=== PATIENT | female | born 1990 | race Caucasian/White ===

== ENCOUNTER 2016-11-11 12:25 | Emergency (ER) | payer OTHER ==
[~2016-11-11] VITALS: Ht 154.9 cm; Wt 86.2 kg
[~2016-11-11 12:25] MED LIST: DILANTIN100 MG PO; KEPPRA XR750 MG PO; KEPPRA500 MG PO; KEPPRA750 MG PO; LAMICTAL25 MG PO; TRILEPTAL600 MG PO
[2016-11-11 13:04] VITALS: BP 143/69
--- NOTE | 2016-11-11 15:07 | NUR ---
Patient to bed 07.
--- NOTE | 2016-11-11 15:39 | NUR ---
PT PRESENTS TO ER W/C/O VAGINAL BLEEDING DURING X1 WEEK; DENIES N/V/D; SKIN IS PINK/WARM/DRY; AAOX4 WITH EVEN AND STEADY GAIT; LUNGS CLEAR BL; HR EVEN AND REGULAR; PT DENIES ANY FEVER, CP, SOB, OR COUGH AT THIS TIME; PATIENT STATES PAIN OF 0/10 AT THIS TIME; VSS; PATIENT POSITIONED FOR COMFORT; HOB ELEVATED; BEDRAILS UP X2; BED DOWN. ER MD MADE AWARE OF PT STATUS.
[2016-11-11 16:33] VITALS: BP 138/72
--- NOTE | 2016-11-11 16:33 | NUR ---
Patient discharged with v/s stable. Written and verbal after care instructions given and explained. Patient verbalized understanding. Ambulatory with by parent. All questions addressed prior to discharge. Advised to follow up with PMD.
[2016-11-21] MEDS ORDERED: KETOROLAC PO (12:55)
[2016-11-21] MEDS ORDERED: FIORICET PO (12:55)
== END 2016-11-11 16:33 | disposition home or self-care (01) ==
LOC: MED 12:25
DX: O03.9 Complete or unspecified spontaneous abortion without complication (principal)
CPT/HCPCS: 36415; 76801; 76817; 81001; 81025; 84702; 85025; 86900; 86901; 99285; Q0092

== ENCOUNTER 2016-11-13 14:50 | Inpatient (IN) | payer OTHER ==
[~2016-11-13] VITALS: Ht 154.9 cm; Wt 104.3 kg
[~2016-11-13 14:50] MED LIST changes: -DILANTIN100 MG PO; -KEPPRA XR750 MG PO; -KEPPRA500 MG PO; -KEPPRA750 MG PO; -LAMICTAL25 MG PO; +LEVE750T3 PO; +OXCA600T2 PO; +PHEN100C3 PO; -TRILEPTAL600 MG PO
[2016-11-13 14:53] VITALS: BP 159/70
--- NOTE | 2016-11-13 16:05 | NUR ---
Patient taken to bed 06 via wheelchair per tech.
--- NOTE | 2016-11-13 16:10 | NUR ---
26F BIB FAMILY C/O ANTERIOR MIGRAINE HEADACHE, RADIATES TO POSTERIOR HEAD, / X TODAY; PT DENIES TRAUMA OR INJURY TO SITE AT THIS TIME; PT STATES HAD BRAIN SURGERY IN 2014 D/T EPILSEPY; SMALL HEALED SCAR NOTED TO LEFT HEAD; PT STATES HAS NOT HAD SEIZURES SINCE BRAIN SURGERY; PT A&OX4, PERRLA, DENIES VISION CHANGES OR VISION LOSS AT THIS TIME; STATES HAS HX OF MIGRAINES; PT C/O VOMITING, BUT DENIES DIARRHEA AT THIS TIME; ABDOMEN SOFT, NON-TENDER, ACTIVE BOWEL SOUNDS X 4 QUADRANTS; BL LUNG SOUNDS CLEAR, RR EVEN/UNLABORED, SKIN IS WARM/DRY/INTACT AT THIS TIME; PT PLACED ON MONITOR, RESTING IN BED W/ HOB ELEVATED AND IN LOWEST POSITION; POSITIONED FOR COMFORT; ER MD MADE AWARE OF STATUS. WILL CONTINUE TO MONITOR.
--- NOTE | 2016-11-13 16:12 | NUR ---
URINE CUP PROVIDED TO PT; BED MCQUEEN AND WATER PROVIDED TO PT PER REQUEST; NO URINE SAMPLE AT THIS TIME; ER MD DR ROACH NOTIFIED; WILL CONTINUE TO MONITOR.
--- NOTE | 2016-11-13 16:14 | NUR ---
WARM BLANKETS PROVIDED TO PT FOR COMFORT.
--- NOTE | 2016-11-13 16:42 | NUR ---
Dr. Camejo evaluating patient at bedside.
[2016-11-13] MEDS ORDERED: NACL 0.9% 1,000 ML IV ONE ×3 (16:46→21:25)
[2016-11-13] MEDS ORDERED: METOCLOPRAMIDE 10 MG/2 ML INJ VIAL IVP ONE (16:50)
[2016-11-13] MEDS ORDERED: diphenhydrAMINE 50 MG/ML VIAL IVP ONE (16:50)
--- NOTE | 2016-11-13 17:15 | NUR ---
PT APPEARS TO BE RESTING COMFORTABLY IN BED; VSS; RR EVEN/UNLABORED; NO ACUTE DISTRESS NOTED AT THIS TIME; WILL CONTINUE TO MONITOR.
--- NOTE | 2016-11-13 17:15 | NUR ---
PT RESTING COMFORTABLY IN BED; VSS; RR EVEN/UNLABORED; NO ACUTE DISTRESS NOTED AT THIS TIME; WILL CONTINUE TO MONITOR.
--- NOTE | 2016-11-13 17:30 | NUR ---
PT STATES PAIN 10/10 AFTER ADMINISTRATION OF PAIN MEDICATION PER ER MD DR. ROACH ORDER; ER MD DR. ROACH NOTIFIED; WILL CONTINUE TO MONITOR.
--- NOTE | 2016-11-13 17:42 | NUR ---
ER MD DR. ROACH RE-EVALUATING PT AT BEDSIDE.
[2016-11-13] MEDS ORDERED: MORPHINE SULFATE 4 MG/ML SYR IVP ONE ×2 (17:45→18:15)
--- NOTE | 2016-11-13 18:37 | NUR ---
PT STATES PAIN 10/10 AFTER ADMINISTRATION OF PAIN MEDICATION PER ER MD DR. ROACH ORDER; ER MD DR. ROACH NOTIFIED. WILL CONTINUE TO MONITOR.
--- NOTE | 2016-11-13 18:39 | NUR ---
ER MD DR. ROACH RE-EVALUATING PT AT BEDSIDE.
[2016-11-13 19:00] LABS: HEMATOCRIT 41.9 % (36-48); HEMOGLOBIN 13.7 g/dL (12.0-16.0); MEAN CORPUSCULAR HEMOGLOBIN 26 pg (27-31); MEAN CORPUSCULAR HGB CONC 33 g/dL (33-37); MEAN CORPUSCULAR VOLUME 79 fL (80-94); PLATELET COUNT (AUTO) 364 K/uL (140-450); RED BLOOD CELL COUNT(AUTO) 5.31 MIL/uL (4.20-5.40); RED CELL DISTRIBUTION WIDTH 12.4 % (11.6-13.7)
--- NOTE | 2016-11-13 19:00 | NUR ---
PT TEMP 101.4 AT THIS TIME; COOLING MEASURES INITIATED; ER MD DR. ROACH NOTIFIED; WILL CONTINUE TO MONITOR.
--- NOTE | 2016-11-13 19:08 | NUR ---
Pt report given to NITA BENJAMIN. Transfer of care at this time.
[2016-11-13 19:10] LABS: ANION GAP 12.8 (8-16); CALCIUM 8.6 mg/dL (8.5-10.1); CREATININE 0.7 mg/dL (0.6-1.3); POTASSIUM 3.8 mmol/L (3.5-5.1)
--- NOTE | 2016-11-13 19:10 | NUR ---
PT IN BED C/O PAIN, TACHY ER MD EVALUATING PT AT BEDSIDE. PLAN OF CARE EXPLAINED TO MOTHER.
--- NOTE | 2016-11-13 19:10 | NUR ---
DR. BOWERS EVALUATING PT AT BEDSIDE.
[2016-11-13 19:16] LABS: ALBUMIN 3.5 g/dL (3.4-5.0); TOTAL BILIRUBIN 0.3 mg/dL (0.0-1.0); TOTAL PROTEIN, SERUM 8.2 g/dL (6.4-8.2)
[2016-11-13 19:17] LABS: BAND % (MANUAL) 3 % (0-8); EOSINOPHILS % (MANUAL) 1 % (0-4); LYMPHOCYTES % (MANUAL) 14 % (20-46); METAMYELOCYTES % 2 % (0-0); MONOCYTES % (MANUAL) 2 % (5-12); MYELOCYTES % 2 % (0-0); NEUTROPHILS % (MANUAL) 76 (43-65); PLATELET ESTIMATE ADEQUATE
--- NOTE | 2016-11-13 19:18 | NUR ---
PT TAKEN TO CT VIA GURSTACEY ACCOMPANIED BY TUFTING MACHINE FIXER.
--- NOTE | 2016-11-13 19:34 | NUR ---
PT RETURN FROM RADIOLOGY
--- NOTE | 2016-11-13 19:42 | NUR ---
UNABLE TO GIVE TYLENOL PO FOR FEVER D/T ALOC. ER NOTIFIED.
[2016-11-13] MEDS ORDERED: ACETAMINOPHEN EXTRA STRENGTH 500 MG TAB ONE (19:46)
--- NOTE | 2016-11-13 19:48 | NUR ---
ATIVAN 2 MG ADMINISTERED IV FOR SEIZURE ACTIVITY, PER ER MD VERBAL ORDER. PT HAD A SEIZURE FOR 45 SEC. ER MD, PRIMARY RN, CHARGE NURSE, EMT AND MOTHER AT BED SIDE. HR 155, BP 115/80, R 35, SPO2 94 DURING SEIZURE ACTIVITY. AFTER SEIZURE ACTIVITY HR 126, R 24, BP 117/84, SPO2 97.
--- NOTE | 2016-11-13 19:50 | NUR ---
MOTHER SIGNED CONSENT FORMS FOR LUMBAR PUNCTURE. RISK AND BENEFITS EXPLAINED BY DR BOWERS AND ME TO MOTHER AT BEDSIDE.
[2016-11-13] MEDS ORDERED: VANCOMYCIN PER PHARMACY MC STA (19:56)
[2016-11-13] MEDS ORDERED: LORazepam 2 MG/ML VIAL ONE (19:57)
[2016-11-13 19:58] LABS: APPEARANCE,URINE CLEAR (CLEAR); BILIRUBIN,URINE NEGATIVE (NEGATIVE); BLOOD, URINE NEGATIVE (NEGATIVE); COLOR,URINE YELLOW (YELLOW); LEUKOCYTE ESTERASE ,URINE NEGATIVE (NEGATIVE); NITRITE, URINE NEGATIVE (NEGATIVE); PROTEIN,URINE NEGATIVE (NEGATIVE); UGLUCOSE NEGATIVE (NEGATIVE); UROBILINOGEN,URINE 0.2 EU/dL (0.2 - 1)
[2016-11-13 20:00] LABS: RBC,URINE 0-3 /HPF (0-5); WBC,URINE 0-3 /HPF (0-5)
[2016-11-13] MEDS ORDERED: DEXAMETHASONE 10 MG/ML VIAL IVP ONE (20:00)
[2016-11-13] MEDS ORDERED: [UNRECOGNIZED DRUG - OTHER] IV ONE (20:00)
[2016-11-13] MEDS ORDERED: cefTRIAXone 2,000 MG in DEXTROSE 5% 100 ML IV ONE (20:00)
[2016-11-13] MEDS ORDERED: VANCOMYCIN IV ONE (20:00)
[2016-11-13 20:01] LABS: BACTERIA,URINE FEW /HPF (None Seen)
[2016-11-13 20:08] LABS: PROTHROMBIN TIME 9.7 secs (10.8-13.4)
[2016-11-13 20:18] LABS: LACTIC ACID 2.4 mmol/L (0.4-2.0)
[2016-11-13] MEDS ORDERED: cefTRIAXone 2,000 MG VIAL ONE (20:18)
[2016-11-13] MEDS ORDERED: ACYCLOVIR 700 MG in NACL 0.9% 100 ML IV ONE (21:25)
[2016-11-13] MEDS ORDERED: ACYCLOVIR 500 MG VIAL IV ONE (21:36)
[2016-11-13] MEDS ORDERED: ACETAMINOPHEN 650 MG SUPP RC ONE (21:40)
[2016-11-13] MEDS ORDERED: ACETAMINOPHEN 325 MG TAB PO PRN (21:55)
[2016-11-13] MEDS ORDERED: LORazepam 2 MG/ML VIAL IVP PRN (22:05)
[2016-11-13] MEDS ORDERED: LORazepam 1 MG TAB PO PRN (22:05)
[2016-11-13] MEDS ORDERED: VANCOMYCIN 1,000 MG VIAL ONE (22:09)
--- NOTE | 2016-11-13 22:21 | NUR ---
Patient will be admitted to care of DR MOTTA. Admited to ICU. Will go to roOM ICU 8. Belongings list completed. Report to POLA.
[2016-11-13 22:43] LABS: AMPHETAMINE, URINE NEG. ng/ml (NEG <=1000); BARBITURATE, URINE NEG. ng/ml (NEG <=200); BENZODIAZEPINE, URINE NEG. ng/mL (NEG <=200); CANNABINOID, URINE NEG. ng/mL (NEG <=50); COCAINE, URINE NEG. ng/mL (NEG <=300); OPIATE, URINE NEG. ng/mL (NEG <=2000); PHENCYCLIDINE SCREEN,URINE NEG. ng/mL (NEG <=25)
--- NOTE | 2016-11-13 22:45 | NUR ---
PT ARRIVED ON UNIT FROM ER VIA GURNEY, PT PLACED ON MONITOR. PT IS CURRENTLY LETHARGIC, DROWSY BUT RESPONDS TO LIGHT PAIN STIMULI. PT IS ON O2 3LPM VIA N/C WITH NO S/S OF ACUTE RESP DISTRESS NOTED AT THIS TIME. [employer] SENIOR OFFICER SHOWS SR-ST AT THIS TIME. PT HAS LEFT HAND #22 RUNNING ACYCLOVIR AT 100ML/HR IV SITE IS DRY PATENT AND INTACT. PT ALSO HAS LEFT AC #20 RUNNING VANCO AT 135ML/HR, IV SITE DISLODGED UPON TRANSFER TO BED. IV MED PAUSED. IV REMOVED. NO S/S OF INFILTRATION. PT ABDOMEN IS SOFT WITH ACTIVE BOWEL SOUNDS UPON AUSCULTATION. PT HAS MCKENNA CATHETER IN PLACE DRAINING CLEAR YELLOW URINE. SKIN INTACT. BED IN LOW POSITION, HOB UP. WILL CONTINUE TO CLOSELY MONITOR.
[2016-11-13 22:47] LABS: CHOL/HDL RATIO 3.5 (1-4.5)
--- NOTE | 2016-11-13 22:50 | NUR ---
DR TALBOT ON UNIT TO EVALUATE PATIENT. PT ABLE TO RESPOND AT TIMES WITH CLEAR WORDS. PT STILL LETHARGIC. WILL CONTINUE TO CLOSELY MONITOR.
[2016-11-13 22:56] VITALS: BP 151/51
[2016-11-13 22:58] LABS: FREE T4 (FREE THYROXINE) 1.01 ng/dL (0.76-1.46); THYROID STIMULATING HORMONE 1.73 uIU/mL (0.34-3.76)
--- NOTE | 2016-11-13 23:00 | NUR ---
DR TALBOT IS SPEAKING WITH FAMILY AT BEDSIDE. WILL FOLLOW UP WITH ANY NEW ORDERS.
--- NOTE | 2016-11-13 23:25 | NUR ---
ABG DONE WITH NO INCIDENT ON 3 L NC. RESULTS GIVEN TO DR TALBOT. PT IS LETHARGIC. DR TALBOT IN TO SEE PT. EKG DONE AND RESULTS GIVEN TO RN AND DR TALBOT. WILL CONTINUE TO MONITOR.
[2016-11-13] MEDS: NACL 0.9% 1,000 ML IV SCH (23:40)
[2016-11-13 23:41] LABS: BLOOD GAS PCO2 27.4 mmHg (20-50); BLOOD GAS PH 7.398 (7.35-7.45); BLOOD GAS PO2 137.3 mmHg
[2016-11-13 23:42] LABS: BLOOD GAS BASE EXCESS -6.6 mmol/L (-2.0-2.0); BLOOD GAS HCO3 16.5 mmol/L
--- NOTE | 2016-11-13 23:50 | NUR ---
FAMILY AT BEDSIDE. NO SOB NOTED AT THIS TIME. WILL CONTINUE TO CLOSELY MONITOR.
[2016-11-14] VITALS (10 sets, daily range): BP systolic 109–145; BP diastolic 53–69
[2016-11-14 00:04] LABS: LACTIC ACID 5.2 mmol/L (0.4-2.0)
--- NOTE | 2016-11-14 00:17 | NUR ---
PT BECOMING MORE ALERT. PT STATED SHE IS HAVING PAIN OF 10/10 WILL MEDICATE ORDERED PRN.
[2016-11-14] MEDS: MORPHINE SULFATE 2 MG/ML SYR IVP PRN ×2 (00:21→05:51)
--- NOTE | 2016-11-14 01:26 | NUR ---
CRITICAL LAB RESULT REPORTED TO DR. MOTTA AFTER HE RETURNED MY PAGE FOR THE 3RD TIME.
--- NOTE | 2016-11-14 02:02 | NUR ---
PT RESTING IN BED. NO SOB NOTED AT THIS TIME. WILL CONTINUE TO MONITOR.
--- NOTE | 2016-11-14 02:37 | NUR ---
DECREASED FIO2 TO 2 L NC 28% SPO2 IS STILL 100%. RN POLA AWARE. WILL CONTINUE TO MONITOR.
--- NOTE | 2016-11-14 04:40 | NUR ---
MORNING CARE RENDERED. PT ABLE TO TURN SELF NO SOB NOTED. WILL CONTINUE TO CLOSELY MONITOR.
[2016-11-14] MEDS: NACL 0.9% 1,000 ML IV SCH ×3 (04:46→17:35)
--- NOTE | 2016-11-14 05:17 | NUR ---
DECREASED FIO2 TO 1 L NC 24% SPO2 IS STILL 100%. RN RAYNE AWARE. WILL CONTINUE TO MONITOR
--- NOTE | 2016-11-14 05:50 | NUR ---
PT AWAKE, PT ABLE TO OPEN EYES WHEN ASKED TO. PT STATES SHE IS HAVING BACK PAIN OF 8/10. WILL MEDICATE ORDERED PRN
--- NOTE | 2016-11-14 06:27 | NUR ---
PT SLEEPING AT THIS TIME. FLACC 0. NO S/S OF DISCOMFORT OR ACUTE RESP DISTRESS NOTED AT THIS TIME. PARENTS AT BEDSIDE. WILL CONTINUE TO MONITOR.
[2016-11-14] MEDS ORDERED: LORazepam 2 MG/ML VIAL IVP STA (06:47)
[2016-11-14] MEDS ORDERED: VANCOMYCIN PER PHARMACY MC PRN (07:05)
[2016-11-14] MEDS: ONDANSETRON 4 MG/2 ML VIAL IVP PRN (07:07)
--- NOTE | 2016-11-14 07:15 | NUR ---
ENDORSED PLAN OF CARE TO DAY NURSES NITA DEVI RN UGOCHI RN FOR TRANSFER OF CARE. PT STABLE AT THIS TIME.
--- NOTE | 2016-11-14 07:20 | NUR ---
PT IS ALERT AND ORIENTED X 3. LETHARGIC. C/O NAUSEA. NOTED TO PT THAT ZOFRAN WAS JUST ADMINISTERED AND WILL TAKE AWHILE TO WORK. PT STATED UNDERSTANDING. DECLINE BREAKFAST. DECLINE TURN D/T NAUSEA. WILL LET NURSING KNOW WHEN SHE FEELS READY TO EAT. TEMPERATURE WAS 100 F. WILL F/U WITH MD FOR APPROPRIATE FORM OF MEDICATION PT HAS NAUSEA. PT IS CURRENTLY ON ROOM AIR SATURATING WELL. ST ON MONITOR. L AC 22 GAUGE INTACT AND FLUSHING. L HAND 22 GAUGE INTACT AND PATENT. FLUSHING WELL. SKIN INTACT. MCKENNA CATHETER IN PLACE. DRAINING CLEAR YELLOW URINE. WILL CONTINUE TO MONITOR.
--- NOTE | 2016-11-14 07:49 | NUR ---
ORDERS CLARIFIED WITH PHARMACY REGARDING ABX DOSE.
--- NOTE | 2016-11-14 08:15 | NUR ---
NOTIFIED PT HAS HEADACHE AT 03/24. PER THEY WILL COME TO CHECK PT.
--- NOTE | 2016-11-14 08:15 | NUR ---
DR. MOTTA AT BEDSIDE. WILL F/U WITH NEW ORDERS.
[2016-11-14] MEDS ORDERED: ACETAMINOPHEN 650 MG SUPP RC PRN (08:20)
--- NOTE | 2016-11-14 08:30 | NUR ---
IN TO SEE PT, ASKED PT'S MOTHER REGARDING PT'S MEDICAL HISTORY.
[2016-11-14] MEDS: HYDROmorphone 1 MG/ML AMP IVP PRN ×2 (08:41→16:07)
[2016-11-14 09:12] LABS: HEMATOCRIT 36.4 % (36-48); HEMOGLOBIN 12.4 g/dL (12.0-16.0); MEAN CORPUSCULAR HEMOGLOBIN 27 pg (27-31); MEAN CORPUSCULAR HGB CONC 34 g/dL (33-37); MEAN CORPUSCULAR VOLUME 78 fL (80-94); PLATELET COUNT (AUTO) 290 K/uL (140-450); RED BLOOD CELL COUNT(AUTO) 4.66 MIL/uL (4.20-5.40); RED CELL DISTRIBUTION WIDTH 11.9 % (11.6-13.7)
[2016-11-14 09:22] LABS: POTASSIUM 3.5 mmol/L (3.5-5.1)
--- NOTE | 2016-11-14 09:25 | NUR ---
PT HAS 0900 MEDICATION. PT STATED SHE IS ABLE TO SWALLOW IT. A/O X 3 LETHARGIC. WILL MONITOR MEDICATION ADMINISTRATION CLOSELY.
[2016-11-14 09:26] LABS: WHITE BLOOD COUNT (AUTO) 32.9 K/uL (4.8-10.8)
--- NOTE | 2016-11-14 09:26 | NUR ---
CRITICAL WBC RESULTS RECEIVED FROM DEONTE IN LAB. NOTIFIED AT 0932. NO NEW ORDERS RECEIVED. WILL CONTINUE TO MONITOR.
[2016-11-14 09:27] LABS: BAND % (MANUAL) 6 % (0-8); LYMPHOCYTES % (MANUAL) 5 % (20-46); MONOCYTES % (MANUAL) 5 % (5-12); NEUTROPHILS % (MANUAL) 84 (43-65)
--- NOTE | 2016-11-14 09:29 | NUR ---
FAXED INITIAL REVIEW TO [facility] [phone] PHONE [facility] [phone]
[2016-11-14] MEDS: OXcarbazepine 150 MG TAB PO SCH ×2 (09:30→20:51)
[2016-11-14] MEDS: levETIRAcetam 500 MG TAB PO SCH ×2 (09:30→20:51)
[2016-11-14] MEDS: LACTOBACILLUS RHAMNOSUS GG 1 EACH CAP PO SCH (09:30)
[2016-11-14 09:38] LABS: CALCIUM 7.8 mg/dL (8.5-10.1); CARBON DIOXIDE 23.5 mmol/L (21-32); CREATININE 0.7 mg/dL (0.6-1.3)
--- NOTE | 2016-11-14 10:10 | NUR ---
PATIENT HAS BEEN SCREENED AND CATEGORIZED HIGH NUTRITION RISK. PATIENT WILL BE SEEN WITHIN 1-2 DAYS OF ADMISSION. 11/14/16-11/15/[address]
[2016-11-14 10:18] LABS: BLOOD GAS PH 7.434 (7.35-7.45); BLOOD GAS PO2 72.3 mmHg
[2016-11-14 10:19] LABS: BLOOD GAS BASE EXCESS -1.4 mmol/L (-2.0-2.0); BLOOD GAS HCO3 22.3 mmol/L; BLOOD GAS O2 SAT% 94.4 % (92.0-98.5)
--- NOTE | 2016-11-14 10:37 | NUR ---
US TECH AT BEDSIDE
--- NOTE | 2016-11-14 10:49 | NUR ---
DR. DAVENPORT AT BEDSIDE TO SEE PT. WILL F/U WITH NEW ORDERS.
[2016-11-14] MEDS: VANCOMYCIN 1,250 MG in DEXTROSE 5% 250 ML IV SCH ×2 (11:16→22:51)
[2016-11-14] MEDS: HYDROcodone/APAP 5/325 MG 1 TAB TAB PO PRN (11:52)
--- NOTE | 2016-11-14 11:52 | NUR ---
PATIENT COMPLAINS OF HEADACHE WITH A PAIN LEVEL OF 6/10. ASSESSED PATIENT BLOOD PRESSURE WITHIN NORMAL LIMITS, RESPIRATIONS ARE EASY AND REGULAR, O-SAT 99% ON ROOM AIR, SR ON MONITOR. NO SIGN OF ACUTE DISTRESS. PATIENT WAS GIVEN NORCO 5/325 PER PHYSICIAN ORDERS. WILL CONTINUE TO MONITOR THE PATIENT.
--- NOTE | 2016-11-14 12:06 | NUR ---
11/14/16 RD INITIAL ASSESSMENT COMPLETED PLEASE REFER TO NUTRITION ASSESSMENT UNDER CARE ACTIVITY FOR ESTIMATED NUTRITIONAL NEEDS. 1. WHEN MEDICALLY FEASIBLE, INITIATE PO DIET: TO START ON CLEAR LIQUID DIET, AND ADVANCE TOLERATED TO REGULAR DIET 2. RD TO FOLLOW-UP 2-3 DAYS; HIGH RISK SHYLA ARTIS RD
--- NOTE | 2016-11-14 12:49 | NUR ---
PT IS RESTING IN BED. AWAKEN TO GENTLE SHAKING. ABLE TO ANSWER ALL QUESTIONS. NO S/SX OF ACUTE DISTRESS NOTED. PT LEFT FOR RADIOLOGY WITH TWO NURSE AND SEARCH ADVERTISING STRATEGIST.
[2016-11-14] MEDS ORDERED: metroNIDAZOLE 500 MG/NS PREMIX 100 ML IV SCH (13:00)
[2016-11-14] MEDS ORDERED: ACYCLOVIR 500 MG in NACL 0.9% 100 ML IV SCH (13:00)
--- NOTE | 2016-11-14 13:24 | NUR ---
DR. TALBOT AT UNIT TO SEE PT. WILL F/U WITH ANY NEW ORDERS.
--- NOTE | 2016-11-14 13:42 | NUR ---
PT BACK TO ICU, PT AWAKE, ALERT, AND ORIENTED. NO S/S OF RESPIRATORY DISTRESS NOTED. ATTACHED PT ON BEDSIDE MONITOR. BP 123/67, HR 103, SPO2 95%, RR 19.
[2016-11-14] MEDS ORDERED: NACL 0.9% IV SCH (14:00)
[2016-11-14] MEDS ORDERED: PHENYTOIN IV SCH (14:00)
[2016-11-14 14:48] LABS: CSF APPEARANCE HAZY (CLEAR); CSF COLOR COLORLESS (COLORLESS)
--- NOTE | 2016-11-14 14:58 | NUR ---
I SPOKE WITH [facility]. IF HIGHER LEVEL OF CARE IS NEEDED, THEY ARE CONTRACTED WITH [facility], [place], [facility]. THE EDS TEAM IS OPERATOR [employer] 05/01, AND CALL THEM AT [phone].
[2016-11-14 15:05] LABS: CSF GLUCOSE 32 mg/dL (40-70); CSF PROTEIN 203.2 mg/dL (15-45)
[2016-11-14 16:26] LABS: CSF RED BLOOD CELL COUNT 72 /cumm (0-0); CSF WHITE BLOOD CELL COUNT 9000 /cumm (0-5)
[2016-11-14] MEDS: PHENYTOIN 100 MG CAPER PO SCH (17:16)
[2016-11-14] MEDS: KETOROLAC 15 MG/ML VIAL IVP PRN (17:16)
--- NOTE | 2016-11-14 17:30 | NUR ---
1722, RECEIVE LAB RESULT FROM COLE ABOUT SPINAL FLUID PRELIMINARY RESULTS. 1726 ATTEMPTED TO CALL MD. VOICE MAIL LEFT. 1728 ATTEMPTED TO CALL MD. VOICE MAIL LEFT. WILL F/U IN 15 MIN.
--- NOTE | 2016-11-14 17:41 | NUR ---
CALL DR. MOTTA PER PROTOCOL. NOTIFIED DR. MOTTA OF RESULTS. NO ORDERS UNTIL FURTHER NOTICE
--- NOTE | 2016-11-14 17:47 | NUR ---
PAGED DR. RANDHAWA PER MD ORDER. WILL AWAIT CALL BACK
[2016-11-14] MEDS: cefTRIAXone 2,000 MG in DEXTROSE 5% 100 ML IV SCH (18:06)
--- NOTE | 2016-11-14 19:00 | NUR ---
RECHECK TEMPERATURE. TEMP WAS 98.3. PT REPORTED RELIEF.
--- NOTE | 2016-11-14 19:15 | NUR ---
REPORT GIVEN TO NITA LÓPEZ. PT IS STABLE.
--- NOTE | 2016-11-14 19:15 | NUR ---
RECEIVED REPORT FROM FUNMI RN AT BEDSIDE, PT IS AAOX4, ABLE TO FOLLOW COMMANDS AND MAKE NEEDS KNOWN, VSS, C/O SEVERE HEADACHE 01/22, WILL MEDICATED AND EDUCATED. NO C/O SOB/DISTRESS, CLEAR LUNG SOUNDS, ON RA, DENIES CHEST PAIN, ST ON MONITOR WITH REGULAR HR, SOFT ABDOMEN WITH ACTIVE BOWEL SOUNDS, NPO EXCEPT MEDS AT THIS TIME, MCKENNA CATHETER IN PLACE WITH CLEAR YELLOW URINE, ABLE TO MOVE ALL EXTREMITIES, ON BEDREST. IV SITE TO RIGHT FOREARM 18GA, PATENT AND SL. IV SITE TO LEFT HAND 22GA, PATENT, RUNNING NS AT 150ML/HR. SKIN IS INTACT, WARM AND DRY TO TOUCH. SCD'S ON BLE FOR DVT PREVENTION. EXPLAINED POC TO PATIENT, PATIENT VERBALIZED UNDERSTANDING, SAFETY PRECAUTION AND SEIZURE PRECAUTION IN PLACE, CALL LIGHT WITHIN REACH, WILL CONTINUE TO MONITOR.
[2016-11-14] MEDS ORDERED: DEXTROSE 5% IV SCH (19:30)
[2016-11-14] MEDS ORDERED: AMPHOTERICIN B IV SCH (19:30)
--- NOTE | 2016-11-14 21:00 | NUR ---
SCHEDULED MEDICATION GIVEN, PT ABLE TO SWOLLEN MEDICATION AT THIS TIME.
--- NOTE | 2016-11-14 21:30 | NUR ---
PT HR 151, FEVER 101.2F, BP 112/50, RR 34, ALSO HAS SYMPTOMS OF CHILL AND SHAKING, DR. SYDNEE ORELLANA, NEW ORDER GIVEN WITH BENADRYL AND TYLENOL, WILL CARRY OUT. Addendum: 11/14/16 at 2137 by Ramy Ingram RN ALSO COMFIRMED WITH DR. RANDHAWA OF CONTINUE MEDICATION OF AMPHOTERICIN B.
[2016-11-14] MEDS ORDERED: diphenhydrAMINE 50 MG/ML VIAL IVP ONE (21:40)
[2016-11-14] MEDS ORDERED: ACETAMINOPHEN 325 MG TAB PO STA (21:45)
--- NOTE | 2016-11-14 21:45 | NUR ---
DR. RANDHAWA CAME TO SEE PATIENT, PT'S FAMILY AT BEDSIDE.
[2016-11-14] MEDS ORDERED: ACETAMINOPHEN 325 MG TAB ONE (21:47)
[2016-11-14] MEDS ORDERED: diphenhydrAMINE 50 MG/ML VIAL ONE (21:56)
--- NOTE | 2016-11-14 22:19 | NUR ---
DR. RANDHAWA WAS HERE TO SEE THE PATIENT, PHYSICIAN SPOKE WITH THE PARENTS, RN ARI CESPEDES/RN HERE TO INTERPRET, MD DISCUSSED WHAT WILL BE THE TREATMENT PLAN AT THIS TIME. DR. RANDHAWA ORDERED DROPLET PRECAUTION FOR NOW UNTIL FURTHER INFO, FUNGAL CULTURE, CRYPTOCOCCAL ANTIGEN AND YENY INK SMEAR ON CSF.
[2016-11-15] VITALS (12 sets, daily range): BP systolic 101–134; BP diastolic 49–81
--- NOTE | 2016-11-15 | NUR ---
PT'S TEMP WENT DOWN TO 99.6F, ASLEEP IN BED WITH COMFORT AT THIS TIME. VSS.
--- NOTE | 2016-11-15 02:00 | NUR ---
VSS. NO CHANGE OF CONDITION AT THIS TIME, PT IS ABLE TO SELF CHANGE POSITION IN BED.
--- NOTE | 2016-11-15 02:33 | NUR ---
INSERTED NEW IV PERIPHERAL LINES ON RIGHT ANTECUBITAL AREA G#22 AND LEFT ARM G#22 WITH GOOD BLOOD RETURN.
[2016-11-15] MEDS: NACL 0.9% 1,000 ML IV SCH ×4 (03:00→20:51)
--- NOTE | 2016-11-15 04:00 | NUR ---
VSS. NO CHANGE OF CONDITION AT THIS TIME, TEMP 98.7F. AM CARE PROVIDED, PT TOLERATED WELL.
--- NOTE | 2016-11-15 06:00 | NUR ---
NO CHANGE OF CONDITION AT THIS TIME, VSS.
--- NOTE | 2016-11-15 07:30 | NUR ---
RECEIVE REPORT FROM MARIBEL MOYA .PT SLEEPING AWAKE BY NAME CALLED . SKIN DRY WARM TO TOUCH TV FLUID # 22 N LT UPPER ARM . INFUSION NS AT 150/HR. ON ROOM AIR, MCKENNA CATH DRAIN AKIN URINE.
[2016-11-15 07:42] LABS: HEMATOCRIT 31.9 % (36-48); HEMOGLOBIN 10.7 g/dL (12.0-16.0); MEAN CORPUSCULAR HEMOGLOBIN 26 pg (27-31); MEAN CORPUSCULAR HGB CONC 34 g/dL (33-37); MEAN CORPUSCULAR VOLUME 78 fL (80-94); PLATELET COUNT (AUTO) 209 K/uL (140-450); RED BLOOD CELL COUNT(AUTO) 4.08 MIL/uL (4.20-5.40); RED CELL DISTRIBUTION WIDTH 12.2 % (11.6-13.7); WHITE BLOOD COUNT (AUTO) 20.4 K/uL (4.8-10.8)
[2016-11-15 07:56] LABS: ANION GAP 13.1 (8-16); CALCIUM 7.6 mg/dL (8.5-10.1); CARBON DIOXIDE 25.1 mmol/L (21-32); CREATININE 0.7 mg/dL (0.6-1.3); POTASSIUM 3.2 mmol/L (3.5-5.1)
--- NOTE | 2016-11-15 08:00 | NUR ---
PE SLEEPING TEMP 101.7 MEDICATION GIVE ORDERED. COLD SPONGE GIVEN. PT COMPLAIN OF BEING SHILL.
[2016-11-15 08:02] LABS: BAND % (MANUAL) 8 % (0-8); LYMPHOCYTES % (MANUAL) 13 % (20-46); MONOCYTES % (MANUAL) 8 % (5-12); NEUTROPHILS % (MANUAL) 71 (43-65)
[2016-11-15 08:03] LABS: MAGNESIUM 1.5 mg/dL (1.8-2.4); PHOSPHORUS 1.4 mg/dL (2.5-4.9)
[2016-11-15] MEDS ORDERED: POTASSIUM CHLORIDE 10 MEQ TABER PO SCH (08:30)
[2016-11-15] MEDS ORDERED: SODIUM PHOS / POTASSIUM PHOS 1 PKT PDR PO SCH (08:30)
[2016-11-15] MEDS ORDERED: MAGNESIUM OXIDE 400 MG TAB PO SCH (08:30)
[2016-11-15] MEDS ORDERED: CALCIUM GLUCONATE 500 MG TAB PO SCH (08:35)
[2016-11-15] MEDS: levETIRAcetam 500 MG TAB PO SCH ×2 (08:38→20:50)
[2016-11-15] MEDS: OXcarbazepine 150 MG TAB PO SCH ×2 (08:39→20:50)
[2016-11-15] MEDS: ACETAMINOPHEN 325 MG TAB PO PRN ×2 (08:39→20:15)
[2016-11-15] MEDS: LACTOBACILLUS RHAMNOSUS GG 1 EACH CAP PO SCH (08:39)
[2016-11-15] MEDS: KETOROLAC 15 MG/ML VIAL IVP PRN (09:11)
--- NOTE | 2016-11-15 09:11 | NUR ---
TEMP CHECKED 101.5. TORADOL 15 MG IVP GIVEN. ICE BAG TO FOREHEAD.
[2016-11-15] MEDS: HYDROmorphone 1 MG/ML AMP IVP PRN (09:51)
--- NOTE | 2016-11-15 10:00 | NUR ---
TEMP 101.2 ORALLY. COOLING MEASURES IN PLACE.
[2016-11-15 10:16] LABS: T4 (THYROXINE) 9.2 ug/dL (4.5-12.0)
[2016-11-15] MEDS ORDERED: VANCOMYCIN 1,250 MG in DEXTROSE 5% 250 ML IV SCH (12:15)
--- NOTE | 2016-11-15 13:00 | NUR ---
PICC LINFE INSERTED BY INDERJIT MOYA,UNDER ULTRA SOUND GUIDE .
[2016-11-15] MEDS ORDERED: VANCOMYCIN 1,500 MG in DEXTROSE 5% 250 ML IV SCH ×7 (14:00→22:00)
[2016-11-15] MEDS: cefTRIAXone 2,000 MG in DEXTROSE 5% 100 ML IV SCH (17:44)
[2016-11-15] MEDS: PHENYTOIN 100 MG CAPER PO SCH (17:45)
--- NOTE | 2016-11-15 18:00 | NUR ---
TEMP 99.I VISIT BY FAMILY MOM , DAD AND SISTER AT BED SIDE .DRINK APPLE JUICE AND JELLO .
--- NOTE | 2016-11-15 18:30 | NUR ---
SEEN BY DR. RECINOS AT BED SIDE ORDER RECEIVED
--- NOTE | 2016-11-15 18:42 | NUR ---
PE OFF CONTACT ISOLATION ORDER BY DR. RANDHAWA
--- NOTE | 2016-11-15 18:45 | NUR ---
SSN BY DR TALBOT, NO ORDER CHANGED.
--- NOTE | 2016-11-15 19:30 | NUR ---
RECEIVED REPORT FROM KRISSY MOYA AT BEDSIDE. PT IS ALERT AWAKE ORIENTED X4. INITIAL ASSESSMENT DONE. NO S/S OF RESPIRATORY DISTRESS OR SOB NOTED. NO C/O PAIN OR ANY DISCOMFORT AT THIS TIME. NOTED ELEVATED TEMPERATURE 101.7 AND MEDICATED PRN TYLENOL PO ORDERED. PLAN OF CARE REVIEWED TO PT AND FAMILY AT BEDSIDE AND VERBALIZED UNDERSTANDING. WILL CONTINUE TO MONITOR.
--- NOTE | 2016-11-15 19:30 | NUR ---
PT SLEEPING REPORT GIVE TO MADI MOYA.
[2016-11-15] MEDS: HYDROcodone/APAP 5/325 MG 1 TAB TAB PO PRN (21:04)
[2016-11-16] VITALS (11 sets, daily range): BP systolic 96–137; BP diastolic 43–80
--- NOTE | 2016-11-16 00:10 | NUR ---
PT IS SLEEPING RIGHT NOW BUT EASILY AROUSABLE. NO S/S OF ANY DISCOMFORT AT THIS TIME. ALL NEEDS ARE ATTENDED. CALL LIGHT WITHIN REACH. WILL CONTINUE TO MONITOR.
[2016-11-16] MEDS: NACL 0.9% 1,000 ML IV SCH ×2 (03:26→11:15)
[2016-11-16] MEDS: HYDROmorphone 1 MG/ML AMP IVP PRN ×4 (04:15→17:29)
[2016-11-16 05:21] LABS: HEMATOCRIT 30.6 % (36-48); HEMOGLOBIN 10.2 g/dL (12.0-16.0); MEAN CORPUSCULAR HEMOGLOBIN 26 pg (27-31); MEAN CORPUSCULAR HGB CONC 33 g/dL (33-37); MEAN CORPUSCULAR VOLUME 79 fL (80-94); PLATELET COUNT (AUTO) 222 K/uL (140-450); RED BLOOD CELL COUNT(AUTO) 3.87 MIL/uL (4.20-5.40); RED CELL DISTRIBUTION WIDTH 12.2 % (11.6-13.7)
--- NOTE | 2016-11-16 05:30 | NUR ---
PT REFUSED TO HAVE AM CARE. PT STATES THAT SHE JUST WANT TO SLEEP RIGHT NOW AND SHE WANTS TO BE CLEAN AFTER BREAKFAST. WILL CONTINUE TO MONITOR.
[2016-11-16 06:22] LABS: ANION GAP 11.9 (8-16); CALCIUM 7.4 mg/dL (8.5-10.1); CARBON DIOXIDE 26.3 mmol/L (21-32); CREATININE 0.6 mg/dL (0.6-1.3); POTASSIUM 3.2 mmol/L (3.5-5.1)
[2016-11-16 06:27] LABS: MAGNESIUM 1.6 mg/dL (1.8-2.4)
[2016-11-16 06:39] LABS: BAND % (MANUAL) 12 % (0-8); NEUTROPHILS % (MANUAL) 56 (43-65)
[2016-11-16 06:40] LABS: LYMPHOCYTES % (MANUAL) 25 % (20-46); MONOCYTES % (MANUAL) 7 % (5-12)
--- NOTE | 2016-11-16 07:31 | NUR ---
PT HAS NO S/S OF ANY DISCOMFORT. PLAN OF CARE ENDORSE TO ZHANNA RN AT BEDSIDE FOR CONTINUITY OF CARE.
[2016-11-16] MEDS: HYDROcodone/APAP 5/325 MG 1 TAB TAB PO PRN ×2 (07:58→12:33)
--- NOTE | 2016-11-16 08:30 | NUR ---
PT. RECEIVED IN BED ALERT AND ORIENTED*4.CARE ASSURED.NO ISOLATION PER REPORT.PT C/O HEADACHES 03/24.NORCO 1TAB PO GIVEN.SR ON THE MONITOR.LUNGS ARE CLEAR.NO SOB NOTED.CLEAR LIQ. FOR BREAKFAST REFUSED.SKIN WARM AND DRY TO TOUCH.IVF NS @ 150CC/HR VIA LEFT UPPER ARM PICC LINE.MCKENNA TO GRAVITY,DRAINING CLEAR YELLOW URINE.NEEDS ARE BEING MET. CALL LIGHT WITHIN HER REACH.
[2016-11-16] MEDS: LACTOBACILLUS RHAMNOSUS GG 1 EACH CAP PO SCH (09:12)
[2016-11-16] MEDS: OXcarbazepine 150 MG TAB PO SCH ×2 (09:12→21:05)
[2016-11-16] MEDS: levETIRAcetam 500 MG TAB PO SCH ×2 (09:12→21:05)
--- NOTE | 2016-11-16 09:56 | NUR ---
PT RESTING QUIETLY AT THIS TIME.NORCO PO INEFFECTIVE PER PT FOR BONNER.DILAUDID 1MG IVP GIVEN FOR BONNER WITH EFFECTIVE RESULT.VSS.NEEDS ARE BEING MET.
[2016-11-16] MEDS: ONDANSETRON 4 MG/2 ML VIAL IVP PRN (12:49)
[2016-11-16] MEDS ORDERED: POTASSIUM CHLORIDE 10 MEQ TABER PO SCH (13:10)
[2016-11-16] MEDS: MAGNESIUM OXIDE 400 MG TAB PO SCH ×2 (14:51→21:16)
[2016-11-16 15:20] LABS: HEMOGLOBIN A1C 5.2 % (4.8-5.6)
[2016-11-16] MEDS: cefTRIAXone 2,000 MG in DEXTROSE 5% 100 ML IV SCH (17:25)
[2016-11-16] MEDS: PHENYTOIN 100 MG CAPER PO SCH (17:25)
--- NOTE | 2016-11-16 17:40 | NUR ---
ATIVAN 0.5MG IVP GIVEN FOR PAIN 03/24 .0.5MG ATIVAN WASTED AND WITNESS BY CHARGE NURSE NITA REY.UNABLE TO WASTE MEDICATION AT THE [facility].PHARMACY NOT AVAILABLE TO ASSIST WITH WASTE RECONCILIATION AT THIS TIME.
--- NOTE | 2016-11-16 19:07 | NUR ---
PT TRANSFER TO [facility] IN STABLE CONDITION.REPORT GIVEN TO THE RECEIVING NURSE.
--- NOTE | 2016-11-16 19:45 | NUR ---
RECEIVED ALERT,ORIENTED,VERBALLY RESPONSIVE. AFEBRILE, NOT IN ACUTE DISTRESS. COMPLAINED OF HEADACHE (02/22). WITH IV FLUIDS NORMAL SALINE INFUSING AT 100 ML/HR VIA LEFT UPPER ARM PICC LINE. MCKENNA CATHETER DRAINING CLEAR YELLOW URINE. SAO2=98% ON O2 @ 2 LPM VIA NC. ON SEIZURE PRECAUTION. SINUS RHYTHM @ 80-90'S/MIN ON THE MONITOR. SCD'S IN PLACE. FAMILY MEMBERS AT BEDSIDE. VS ARE OTHERWISE STABLE. WILL CONTINUE TO MONITOR.
[2016-11-16] MEDS: KETOROLAC 15 MG/ML VIAL IVP PRN (19:53)
--- NOTE | 2016-11-16 19:53 | NUR ---
PT.REFUSED PO PAIN MEDICATION NORCO DUE TO ADVERSE EFFECT OF NAUSEA. DILAUDID NOT DUE TILL 2029. TORADOL 15 MG IVP GIVEN INSTEAD.
[2016-11-16] MEDS: SODIUM PHOS / POTASSIUM PHOS 1 PKT PDR PO SCH (21:08)
--- NOTE | 2016-11-16 21:16 | NUR ---
DUE MEDICATIONS GIVEN.
--- NOTE | 2016-11-16 22:00 | NUR ---
PT.RESTING IN BED. NO PAIN OR DISCOMFORT NOTED.
[2016-11-17] VITALS: BP 121/70
--- NOTE | 2016-11-17 | NUR ---
ASLEEP,NOT IN ANY KIND OF DISTRESS. NO PAIN OR DISCOMFORT NOTED. SIDE RAILS UP, CALL LIGHT WITHIN REACH. KEPT WARM AND COMFORTABLE. VS REMAIN STABLE.
[2016-11-17] MEDS: SODIUM PHOS / POTASSIUM PHOS 1 PKT PDR PO SCH (01:25)
[2016-11-17] MEDS ORDERED: SODIUM PHOS / POTASSIUM PHOS 1 PKT PDR ONE (01:30)
[2016-11-17] MEDS: KETOROLAC 15 MG/ML VIAL IVP PRN ×3 (03:42→15:44)
--- NOTE | 2016-11-17 03:43 | NUR ---
COMPLAINED OF RECURRENCE OF HEADACHE (5/10). ALSO HAS LOW GRADE FEVER. 99.8. TORADOL 15 MG IVP GIVEN ORDERED. OTHER VS ARE WITHIN NORMAL LIMITS. WILL CLOSELY MONITOR.
[2016-11-17 04:00] VITALS: BP 120/78
[2016-11-17] MEDS: NACL 0.9% 1,000 ML IV SCH ×3 (04:31→21:03)
--- NOTE | 2016-11-17 06:00 | NUR ---
ASLEEP. NO PAIN NOTED AT THIS TIME.
[2016-11-17 06:16] LABS: BASOPHILS # (AUTO) 0.1 K/uL (0.00-0.22); BASOPHILS % (AUTO) 1.3 % (0.0-2.0); EOSINOPHILS # (AUTO) 0.2 K/uL (0-0.4); EOSINOPHILS % (AUTO) 1.6 % (0.0-4.0); HEMATOCRIT 29.2 % (36-48); HEMOGLOBIN 9.6 g/dL (12.0-16.0); LYMPHOCYTES # (AUTO) 2.8 K/uL (2.5-16.5); LYMPHOCYTES % (AUTO) 26.6 % (20.5-51.1); MEAN CORPUSCULAR HEMOGLOBIN 26 pg (27-31); MEAN CORPUSCULAR HGB CONC 33 g/dL (33-37); MEAN CORPUSCULAR VOLUME 79 fL (80-94); MONOCYTES # (AUTO) 0.7 K/uL (0.8-1.0); MONOCYTES % (AUTO) 6.9 % (1.7-9.3); NEUTROPHILS # (AUTO) 6.9 K/uL (1.8-7.7); NEUTROPHILS % (AUTO) 63.6 % (42.2-75.2); PLATELET COUNT (AUTO) 264 K/uL (140-450); RED BLOOD CELL COUNT(AUTO) 3.71 MIL/uL (4.20-5.40); RED CELL DISTRIBUTION WIDTH 11.8 % (11.6-13.7); WHITE BLOOD COUNT (AUTO) 10.7 K/uL (4.8-10.8)
[2016-11-17 06:40] LABS: ANION GAP 10.7 (8-16); CALCIUM 7.7 mg/dL (8.5-10.1); CARBON DIOXIDE 27.5 mmol/L (21-32); CREATININE 0.5 mg/dL (0.6-1.3); MAGNESIUM 1.7 mg/dL (1.8-2.4); PHOSPHORUS 2.6 mg/dL (2.5-4.9); POTASSIUM 3.2 mmol/L (3.5-5.1); TOTAL BILIRUBIN 0.1 mg/dL (0.0-1.0); TOTAL PROTEIN, SERUM 5.8 g/dL (6.4-8.2)
--- NOTE | 2016-11-17 07:10 | NUR ---
ENDORSED CARE TO LENCHO MOYA.
--- NOTE | 2016-11-17 07:10 | NUR ---
RECEIVED PT REPORT AT BEDSIDE FROM NIGHT NURSE. PT IS AAOX4 AND SHOWS NO S/S OF DISTRESS ON 2L O2 NC. PT SKIN IS INTACT. NOTED MCKENNA CATHETER WITH CLEAR YELLOW URINE. PT STATES SHE HAS A HEADACHE. PT RATES HEADACHE PAIN 10/10. WILL ADMINISTER PRN MEDICATION FOR PAIN. PT HAS NOTED PICC LINE ON THE LEFT UPPER ARM WITH IVF RUNNING. PT WAS EDUCATED ON USING THE CALL LIGHT. PT WAS EXPLAINED ABOUT POC FOR THE DAY. PT VERBALIZED UNDERSTANDING. PT'S BED IS LOWERED WITH CALL LIGHT WITHIN REACH.
[2016-11-17] MEDS ORDERED: MAG SULF 2000 MG/WATER PREMIX 50 ML IV SCH (07:20)
[2016-11-17] MEDS ORDERED: POTASSIUM CHLORIDE 10 MEQ TABER PO SCH (07:20)
--- NOTE | 2016-11-17 08:00 | NUR ---
PT STATED SHE HAD A HEADACHE. PT STATES PAIN 10/10 WITH 10 BEING HER WORST PAIN. WILL ADMINISTER PRN MEDICATION FOR PAIN.
--- NOTE | 2016-11-17 08:10 | NUR ---
PT BEING SEEN BY DR. MOTTA.
[2016-11-17] MEDS: HYDROmorphone 1 MG/ML AMP IVP PRN (08:22)
[2016-11-17] MEDS: levETIRAcetam 500 MG TAB PO SCH ×2 (08:27→20:13)
[2016-11-17] MEDS: OXcarbazepine 150 MG TAB PO SCH ×2 (08:28→20:13)
[2016-11-17] MEDS: LACTOBACILLUS RHAMNOSUS GG 1 EACH CAP PO SCH (08:28)
--- NOTE | 2016-11-17 08:30 | NUR ---
ADMINISTERED SCHEDULED MEDICATIONS AND PAIN MEDICATION (PLEASE SEE EMAR). PT TOLERATED WELL. PT IS ON O2 2L NC AND SHOWS NO S/S OF DISTRESS AT THIS TIME. PT ONLY ATE FRUIT FROM HER BREAKFAST TRAY. PT STATED SHE WAS NOT HUNGRY. PT IS LAYING IN BED WITH CALL LIGHT WITHIN REACH.
--- NOTE | 2016-11-17 08:45 | NUR ---
PT BEING SEEN BY PHYSICAL THERAPY.
--- NOTE | 2016-11-17 08:50 | NUR ---
RECEIVED CALL FROM PT'S FATHER. FATHER MADE AWARE OF PT POC FOR THE DAY. PT'S FATHER VERBALIZED UNDERSTANDING. HE WILL BE IN TODAY.
--- NOTE | 2016-11-17 09:00 | NUR ---
PT IN BED RESTING COMFORTABLY ON 2L O2 NC. WILL CONTINUE TO MONITOR.
--- NOTE | 2016-11-17 10:20 | NUR ---
PT MOTHER AT BEDSIDE. PT STATES HEADACHE PAIN MEDICATION IS NOT HELPING ANYMORE. WILL ADMINISTER AVAILABLE PRN PAIN MEDICATION.
--- NOTE | 2016-11-17 10:26 | NUR ---
PT STATED HEADACHE PAIN IS 10/10. 10 BEING HER WORST PAIN. ADMINISTERED PRN PAIN MEDICATION. WILL REASSESS.
--- NOTE | 2016-11-17 10:36 | NUR ---
DR MOTTA ADDED ONE TIME DOSE FOR TORADOL 30 MG IM. NURSE ADMINISTERED PRN PAIN MEDICATION TORADOL 15 MG IVP. WILL NOTIFY MD AND AWAIT ORDERS.
[2016-11-17] MEDS ORDERED: KETOROLAC 30 MG/ML VIAL IM SCH (10:37)
[2016-11-17] MEDS ORDERED: FUROSEMIDE 20 MG/2 ML VIAL IVP SCH (10:37)
--- NOTE | 2016-11-17 10:40 | NUR ---
DR MOTTA AWARE OF NURSE ADMINISTERING TORADOL 15MG IVP. STATES HE WILL CANCEL ORDER HE PLACED AND PLACE A NEW ORDER FOR TORADOL 15 MG IM. WILL ADMINISTER PRN PAIN MEDICATION ONCE IT IS AVAILABLE.
[2016-11-17] MEDS ORDERED: KETOROLAC 15 MG/ML VIAL IM SCH (10:53)
--- NOTE | 2016-11-17 11:17 | NUR ---
PT STATES HEADACHE PAIN OF 10/10. ADMINISTERED AVAILABLE PRN PAIN MEDICATION.
--- NOTE | 2016-11-17 12:10 | NUR ---
11/17/16 RD FOLLOW-UP ASSESSMENT COMPLETED PLEASE REFER TO NUTRITION ASSESSMENT UNDER CARE ACTIVITY FOR ESTIMATED NUTRITIONAL NEEDS. 1. CONTINUE REGULAR DIET 2. ADD HEALTH SHAKE BID 3. RD TO FOLLOW-UP 2-3 DAYS; HIGH RISK SHYLA ARTIS RD
--- NOTE | 2016-11-17 12:15 | NUR ---
PT DID NOT EAT PT FAMILY STATED THE PT DOES NOT LIKE EATING HOSPITAL FOOD. PT MOTHER ENCOURAGE TO BRING FOOD FROM HOME. PT IS SLEEPING AND SHOWS NO S/S OF DISTRESS ON 2L O2 NC.
--- NOTE | 2016-11-17 12:36 | NUR ---
FAXED CONCURRENT REVIEW TO [facility] [phone] PHONE [phone] [facility] [id number]
--- NOTE | 2016-11-17 13:00 | NUR ---
PT MCKENNA CATHETER OUTPUT WAS [id number].
--- NOTE | 2016-11-17 14:10 | NUR ---
PT IN BED AND SHOWS NO S/S OF DISTRESS ON O2 2L NC.
--- NOTE | 2016-11-17 14:55 | NUR ---
PT TEMP IS 98.6 F. PT IS SLEEPING AND SHOWS NO S/S OF DISTRESS ON 2L O2 NC.
--- NOTE | 2016-11-17 15:20 | NUR ---
PT STATED SHE HAS A HEADACHE HOWEVER PRN MEDICATION FOR HEADACHE WAS DISCONTINUED. WILL NOTIFY DR. MOTTA. RESIDENTS AND FOLLOW THROUGH WITH POC.
[2016-11-17] MEDS ORDERED: KETOROLAC 15 MG/ML VIAL IVP SCH (15:25)
[2016-11-17 15:58] VITALS: BP 116/67
--- NOTE | 2016-11-17 16:30 | NUR ---
PT STATED SHE WANTED TO TAKE USE THE RESTROOM. PT HAD A BM. PT THEN ASKED TO TAKE A SHOWER. PT AMB TO SHOWER WITH STEADY GAIT. PT DENIES SOB OR PAIN.
--- NOTE | 2016-11-17 17:00 | NUR ---
PT AMB TO BED FROM SHOWER. AMB WITH STEADY GAIT. PT NOW IN BED AND SHOWS NO S/S OF DISTRESS NOTED ON ROOM AIR. NOTED LEFT ARM SWOLLEN. DR MOTTA RESIDENT IS AWARE. MD TO SEE PT.
[2016-11-17] MEDS: PHENYTOIN 100 MG CAPER PO SCH (17:01)
--- NOTE | 2016-11-17 17:05 | NUR ---
ADMINISTERED SCHEDULED MEDICATIONS. PT TOLERATED WELL. PT SHOWS NO S/S OF DISTRESS ON ROOM AIR. BED IS LOWERED FLAT AND CALL LIGHT WITHIN REACH.
[2016-11-17] MEDS: cefTRIAXone 2,000 MG in DEXTROSE 5% 100 ML IV SCH (17:06)
--- NOTE | 2016-11-17 17:40 | NUR ---
IS AT PT BEDSIDE AND STATED TO CONTINUE IVF AND ABX. WILL ELEVATE ARM AND PROVIDE COLD COMPRESS TO DECREASE THE LEFT ARM SWELLING.
[2016-11-17] MEDS: APAP/BUTAL/CAFF 325/50/40 MG 1 TAB PO PRN (18:23)
--- NOTE | 2016-11-17 19:30 | NUR ---
RECEIVED REPORT FROM AM NURSE. PT AOX4, ABLE TO VERBALIZE NEEDS. PT C/O HEADACHE, SEE PAIN ASSESSMENT, WILL MEDICATE ORDERED. PT DENIES CP, SOB OR S/S OF ACUTE DISTRESS. PT TEMP 99.6, COOLING MEASURES AND ICE PACKS ENSURED. CONDITION STABLE. WILL RECHECK AND CONTINUE TO MONITOR. MORBID OBESITY NOTED. MCKENNA CATH IN PLACE, DRAINING CLEAR YELLOW URINE. LEFT PICC ACCESS, DOUBLE LUMEN. ASYMPTOMATIC, PATENT AND INTACT. IVF INFUSING WELL. DISCUSSED AND REVIEWED PLAN OF CARE WITH PT. PT VERBALIZES UNDERSTANDING. SAFETY MEASURES ENSURED. CALL LIGHT WITHIN REACH. WILL CONTINUE TO MONITOR.
--- NOTE | 2016-11-17 20:25 | NUR ---
DUE MEDICATIONS ADMINISTERED WITH EDUCATION BY MERCANTILE AGENT WITH TREAD BOOKER. PT VERBALIZED UNDERSTANDING AND TOLERATED MEDS WELL. CONDITION STABLE. SAFETY MEASURES ENSURED. CALL LIGHT WITHIN REACH.
[2016-11-17] MEDS: HYDROcodone/APAP 5/325 MG 1 TAB TAB PO PRN (21:43)
[2016-11-18] VITALS: BP 119/57
[2016-11-18] MEDS: APAP/BUTAL/CAFF 325/50/40 MG 1 TAB PO PRN ×3 (00:24→18:43)
--- NOTE | 2016-11-18 00:30 | NUR ---
PT C/O PERSISTENT HEADACHE, SEE PAIN ASSESSMENT. ADMINISTERED FIORICET ORDERED. WILL CONTINUE TO MONITOR. TEMP 100.2, ICE PACKS AND COOLING MEASURES MAINTAINED. FIORICET ALREADY ADMINISTERED. WILL CONTINUE TO MONITOR. CONDITION STABLE. ALL NEEDS MET. SAFETY MEASURES ENSURED. CALL LIGHT WITHIN REACH.
[2016-11-18] MEDS: HYDROcodone/APAP 5/325 MG 1 TAB TAB PO PRN ×2 (05:05→13:22)
--- NOTE | 2016-11-18 05:05 | NUR ---
PT C/O PERSISTENT HEADACHE, SEE PAIN ASSESSMENT. ADMINISTERED NORCO ORDERED. WILL CONTINUE TO MONITOR. TEMP 101.1, ICE PACKS AND COOLING MEASURES MAINTAINED. NORCO ALREADY ADMINISTERED. WILL RECHECK AND CONTINUE TO MONITOR. CONDITION STABLE. ALL NEEDS MET. SAFETY MEASURES ENSURED. CALL LIGHT WITHIN REACH.
--- NOTE | 2016-11-18 06:05 | NUR ---
TEMP RECHECKED, 99.2. ICE PACKS AND COOLING MEASURES MAINTAINED. CONDITION STABLE. WILL CONTINUE TO MONITOR.
[2016-11-18 06:32] LABS: BASOPHILS # (AUTO) 0.3 K/uL (0.00-0.22); BASOPHILS % (AUTO) 2.5 % (0.0-2.0); EOSINOPHILS # (AUTO) 0.3 K/uL (0-0.4); EOSINOPHILS % (AUTO) 3.2 % (0.0-4.0); HEMATOCRIT 31.5 % (36-48); HEMOGLOBIN 10.4 g/dL (12.0-16.0); LYMPHOCYTES # (AUTO) 3.5 K/uL (2.5-16.5); LYMPHOCYTES % (AUTO) 34.8 % (20.5-51.1); MEAN CORPUSCULAR HEMOGLOBIN 26 pg (27-31); MEAN CORPUSCULAR HGB CONC 33 g/dL (33-37); MEAN CORPUSCULAR VOLUME 79 fL (80-94); MONOCYTES # (AUTO) 0.7 K/uL (0.8-1.0); MONOCYTES % (AUTO) 7.4 % (1.7-9.3); NEUTROPHILS # (AUTO) 5.3 K/uL (1.8-7.7); NEUTROPHILS % (AUTO) 52.1 % (42.2-75.2); PLATELET COUNT (AUTO) 311 K/uL (140-450); RED BLOOD CELL COUNT(AUTO) 3.99 MIL/uL (4.20-5.40); WHITE BLOOD COUNT (AUTO) 10.1 K/uL (4.8-10.8)
[2016-11-18 06:50] LABS: ANION GAP 11.5 (8-16); CALCIUM 8.1 mg/dL (8.5-10.1); CREATININE 0.5 mg/dL (0.6-1.3); POTASSIUM 3.5 mmol/L (3.5-5.1)
[2016-11-18] MEDS: KETOROLAC 15 MG/ML VIAL IVP PRN ×2 (06:55→14:38)
--- NOTE | 2016-11-18 07:02 | NUR ---
PT C/O PERSISTENT HEADACHE. SEE PAIN ASSESSMENT. PT STATED TORADOL WORKS FOR HER. ADMINISTERED IV TORADOL WITH EDUCATION. PT VERBALIZED UNDERSTANDING AND TOLERATED MED WELL. CONDITION STABLE. ALL NEEDS MET. SAFETY MEASURES ENSURED.
[2016-11-18 07:12] LABS: MAGNESIUM 1.7 mg/dL (1.8-2.4); PHENYTOIN (DILANTIN) 12.9 ug/ml (10.0-20.0)
--- NOTE | 2016-11-18 07:25 | NUR ---
REPORT RECEIVED FROM COSMETICS SUPERVISOR, CARE ASSUMED AT THIS TIME, PT RESTING WITH EYES CLOSED, RESP EVEN UNLABORED ON ROOM AIR IN NAD, AROUSED EASILY BY VOICE, PLAN OF CARE REVIEWED, PT DENIES ANY IMMEDIATE NEEDS, CALL JEFFREY WITHIN REACH, SIDE RAILS UP, BED LOCKED IN LOW POSITION, SZ PRECAUTIONS IN PLACE, WILL CONTINUE TO MONITOR.
--- NOTE | 2016-11-18 07:50 | NUR ---
ENDORSED PLAN OF CARE TO AM NURSE. CONDITION STABLE.
[2016-11-18 08:00] VITALS: BP 122/66
[2016-11-18] MEDS: levETIRAcetam 500 MG TAB PO SCH ×2 (09:06→20:10)
[2016-11-18] MEDS: OXcarbazepine 150 MG TAB PO SCH ×2 (09:06→20:11)
[2016-11-18] MEDS: LACTOBACILLUS RHAMNOSUS GG 1 EACH CAP PO SCH (09:06)
[2016-11-18] MEDS: ONDANSETRON 4 MG/2 ML VIAL IVP PRN (09:12)
[2016-11-18] MEDS ORDERED: MAGNESIUM OXIDE 400 MG TAB PO SCH (10:47)
--- NOTE | 2016-11-18 11:00 | NUR ---
FAXED CONCURRENT REVIEW TO [facility] [phone] PHONE [phone] [facility] [id number]
--- NOTE | 2016-11-18 11:12 | NUR ---
MCKENNA REMOVED, BALLOON DEFLATED, TIP INTACT, PT ANGIE WELL, 1600ML CLEAR URINE IN BAG
--- NOTE | 2016-11-18 11:42 | NUR ---
PT UP TO BATHROOM WITH STEADY GAIT, SPONTANEOUS VOID WITHOUT PROBLEM AFTER DC OF MCKENNA CATH.
--- NOTE | 2016-11-18 12:00 | NUR ---
PT UP TO SHOWER, OK'D BY DR MOTTA, ANGIE WELL, DENIES DIZZINESS OR LIGHT HEADEDNESS, WALKS AROUND WITH STEADY GAIT.
--- NOTE | 2016-11-18 13:01 | NUR ---
SPOKE WITH PATIENT. SHE SAID SHE SPOKE WITH THE PHYSICIAN AND GAVE HIM THE N[place] [facility] [place] WHO [place]. [place] IS AGREEABLE TO BE [place] [facility] [place]. SHE IS NOT AGREEABLE TO GO HOME ON IV ANTIBIOTICS, WANTS TO BE WELL WHEN SHE IS DISCHARGED.
--- NOTE | 2016-11-18 14:38 | NUR ---
PT STATES " I JUST WOKE UP WITH SEVER HEADACHE AGAIN" TEMP 100.6 TA NOW, PRN TORADOL GIVEN AT THIS TIME, EXTRA BLANKETS REMOVED, ICE PACK PROVIDED FOR COMFORT, FATHER AT BEDSIDE, WILL CONTINUE TO MONITOR.
--- NOTE | 2016-11-18 15:40 | NUR ---
ECHOCARDIOGRAM BEING DONE AT BEDSIDE AT THIS TIME.
[2016-11-18 16:00] VITALS: BP 115/67
[2016-11-18] MEDS: PHENYTOIN 100 MG CAPER PO SCH (16:49)
[2016-11-18] MEDS: cefTRIAXone 2,000 MG in DEXTROSE 5% 100 ML IV SCH (17:23)
--- NOTE | 2016-11-18 17:57 | NUR ---
CC URINE SAMPLE COLLECTED AND SENT LAB, PT UP TO BATHROOM WITH STEADY GAIT, DENIES PAIN OR DISCOMFORT, WILL CONTINUE TO MONITOR.
[2016-11-18] MEDS: KETOROLAC 30 MG/ML VIAL IVP SCH ×2 (19:00→21:41)
--- NOTE | 2016-11-18 19:23 | NUR ---
REPORT GIVEN TO PLATFORM POWER TECHNICIAN NURSE RON RN, PT IN STABLE CONDITION.
--- NOTE | 2016-11-18 19:45 | NUR ---
RECEIVED PT IN STABLE CONDITION FROM AM NURSE. AWAKE,ALERT AND ORIENTED X4. ON MED SURG. WITH NO ACUTE DISTRESS NOTED. HAS IVF INFUISNG WELL ON THE LT UPPER ARM PICC LINE. AMBULATORY TO BATHROOM WITH STANDBY ASSIST. STILL WITH OCCASIONAL HEADACHE. BUT NO C/O PAIN AT THIS TIME. PLAN OF CARE DISCUSSED AND VERBALIZED UNDERSTANDING. BED ON LOW POSITION. CALL LIGHT PLACED WITHIN EASY REACH. WILL CONTINUE TO MONITOR.
[2016-11-18 20:04] LABS: APPEARANCE,URINE CLEAR (CLEAR); BILIRUBIN,URINE NEGATIVE (NEGATIVE); BLOOD, URINE NEGATIVE (NEGATIVE); COLOR,URINE YELLOW (YELLOW); LEUKOCYTE ESTERASE ,URINE NEGATIVE (NEGATIVE); NITRITE, URINE NEGATIVE (NEGATIVE); PROTEIN,URINE NEGATIVE (NEGATIVE); UGLUCOSE NEGATIVE (NEGATIVE); UROBILINOGEN,URINE 0.2 EU/dL (0.2 - 1)
[2016-11-18] MEDS: NACL 0.9% 1,000 ML IV SCH (20:29)
[2016-11-18] MEDS ORDERED: KETOROLAC 30 MG/ML VIAL ONE (21:45)
--- NOTE | 2016-11-18 22:00 | NUR ---
SLEEPING AT THIS TIME. NO S/ S OF ANY DISCOMFORT NOR PAIN NOTED.
[2016-11-19] MEDS: NACL 0.9% 1,000 ML IV SCH ×2 (00:36→21:08)
[2016-11-19 00:41] VITALS: BP 109/55
[2016-11-19] MEDS: KETOROLAC 30 MG/ML VIAL IVP SCH ×5 (02:40→23:58)
--- NOTE | 2016-11-19 06:00 | NUR ---
BLOOD WAS DRAWN FROM THE PICC LINE . WILL FOLLOW UP RESULT.
--- NOTE | 2016-11-19 06:12 | NUR ---
HAS BEEN MEDICATED FOR H/A ORDERED.
[2016-11-19 06:35] LABS: HEMATOCRIT 29.9 % (36-48); HEMOGLOBIN 9.9 g/dL (12.0-16.0); MEAN CORPUSCULAR HEMOGLOBIN 26 pg (27-31); MEAN CORPUSCULAR HGB CONC 33 g/dL (33-37); MEAN CORPUSCULAR VOLUME 79 fL (80-94); PLATELET COUNT (AUTO) 322 K/uL (140-450); RED BLOOD CELL COUNT(AUTO) 3.79 MIL/uL (4.20-5.40); RED CELL DISTRIBUTION WIDTH 12.4 % (11.6-13.7); WHITE BLOOD COUNT (AUTO) 12.1 K/uL (4.8-10.8)
[2016-11-19 07:00] LABS: ANION GAP 9.9 (8-16); CALCIUM 8.2 mg/dL (8.5-10.1); CARBON DIOXIDE 26.9 mmol/L (21-32); CREATININE 0.5 mg/dL (0.6-1.3); POTASSIUM 3.8 mmol/L (3.5-5.1)
--- NOTE | 2016-11-19 07:00 | NUR ---
TALKED TO DR. MOTTA RE: BLOOD CULTURE ORDER TO BE CHANGED .
[2016-11-19 07:10] LABS: MAGNESIUM 1.7 mg/dL (1.8-2.4); PHOSPHORUS 3.5 mg/dL (2.5-4.9)
--- NOTE | 2016-11-19 07:11 | NUR ---
ENDORSED PT IN STABLE CONDITION TIAN TURPIN NURSE.
--- NOTE | 2016-11-19 07:20 | NUR ---
REPORT RECEIVED FROM FRAME STRIPPER, CARE ASSUMED AT THIS TIME, PT ASLEEP QUIETLY, RESP EVEN UNLABORED ON ROOM AIR IN NAD, AROUSED EASILY BY VOICE, PLAN OF CARE DISCUSSED, CALL JEFFREY WITHIN REACH, SIDE RAILS UP, BED LOCKED IN LOW POSITION, WILL CONTINUE TO MONTIOR.
[2016-11-19 07:42] LABS: BAND % (MANUAL) 4 % (0-8); EOSINOPHILS % (MANUAL) 6 % (0-4); LYMPHOCYTES % (MANUAL) 29 % (20-46); MONOCYTES % (MANUAL) 7 % (5-12); NEUTROPHILS % (MANUAL) 54 (43-65); PLATELET ESTIMATE ADEQUATE
[2016-11-19 08:00] VITALS: BP 113/65
--- NOTE | 2016-11-19 09:10 | NUR ---
PT TO CT IN WHEELCHAIR AT THIS TIME.
[2016-11-19] MEDS: levETIRAcetam 500 MG TAB PO SCH ×2 (09:20→21:07)
[2016-11-19] MEDS: LACTOBACILLUS RHAMNOSUS GG 1 EACH CAP PO SCH (09:20)
[2016-11-19] MEDS: OXcarbazepine 150 MG TAB PO SCH ×2 (09:20→21:07)
[2016-11-19] MEDS: APAP/BUTAL/CAFF 325/50/40 MG 1 TAB PO PRN ×3 (09:28→21:19)
[2016-11-19] MEDS: cefTRIAXone 2,000 MG in DEXTROSE 5% 100 ML IV SCH ×2 (09:29→21:07)
--- NOTE | 2016-11-19 09:35 | NUR ---
CM NOTE FAXED CONCURRENT REVIEW TO [facility] [phone] PHONE [phone] [facility]Y [id number]
--- NOTE | 2016-11-19 11:55 | NUR ---
PT AAOX4, RESP EVEN UNLABORED, DENIES BONNER, WANTS TO TAKE SHOWER, PICC SITE COVERED, TOWELS PROVIDED, WALKS WITH STEADY GAIT TO SHOWER, DENIES DIZZINESS OR LIGHT HEADEDNESS.
--- NOTE | 2016-11-19 12:38 | NUR ---
SCHEDULED TORADOL GIVEN AT THIS TIME, PT SITTING UP TALKING PLEASANTLY, DENIES BONNER, DENIES N/V, PICC LINE INTACT, IVF INFUSING WELL, SITE CLEAR, CALL JEFFREY WITHIN REACH, BED LOCKED IN LOW POSITION, SIDE RAILS UP, PT DENIES ANY IMMEDIATE NEEDS, WILL CONTINUE TO MONITOR.
--- NOTE | 2016-11-19 15:11 | NUR ---
PT REPORTS LEFT SIDED BONNER IS GETTING WORSE, PT SPEAKS CLEARLY, MOVES ALL EXT, DENIES ANY VISION PROBLEM, NO SZ ACTIVITY NOTED THROUGH OUT THE DAY, PRN FIORICET GIVEN, ROOM DARKENED, TV TURNED OFF, PT POSITIONED FOR COMFORT, CALL JEFFREY WITHIN REACH, SIDE RAILS UP, BED LOCKED IN LOW POSITION, WILL CONTINUE TO MONITOR.
[2016-11-19 15:57] VITALS: BP 120/73
[2016-11-19] MEDS: PHENYTOIN 100 MG CAPER PO SCH (17:31)
--- NOTE | 2016-11-19 17:40 | NUR ---
SCHEDULED MEDS GIVEN AT THIS TIME, PT SITTING UP EATING SANDWICH HER FAMILY BROUGHT IN, PT TALKING SMILING, APPEARS IN NAD, DENIES PAIN OR DISCOMFORT AT THIS TIME, WILL CONTINUE TO MONITOR.
[2016-11-19] MEDS ORDERED: cefTRIAXone 2,000 MG in DEXTROSE 5% 100 ML IV SCH (18:00)
--- NOTE | 2016-11-19 19:16 | NUR ---
REPORT GIVEN TO LABORATORY DIRECTOR NURSE KOBE MOYA, PT IN STABLE CONDITION.
--- NOTE | 2016-11-19 19:17 | NUR ---
RECEIVED REPORT FROM DAY RN FOR CONTINUITY OF CARE. PATIENT IS A&OX4, DISCUSSED PLAN OF CARE WITH PATIENT, VERBALIZED UNDERSTANDING. SHIFT ASSESSMENT DONE, VS TAKEN, STABLE. NO S/S OF RESPIRATORY DISTRESS NOTED ON ROOM AIR. PATIENT DENIES PAIN AT THIS TIME. PICC LINE TO LT UPPER ARM PATENT AND INFUSING FLUIDS WELL. SAFETY/FALL/ SEIZURE PRECAUTIONS ENFORCED. CALL LIGHT WITHIN REACH, WILL CONTINUE TO MONITOR.
[2016-11-19 20:00] VITALS: BP 124/68
--- NOTE | 2016-11-19 21:07 | NUR ---
DUE MEDICATIONS ADMINISTERED, TOLERATED WELL. PT C/O HEADACHE WILL MEDICATE PER MD ORDER. SAFETY PRECAUTIONS ENFORCED, CALL LIGHT WITHIN REACH.
[2016-11-19] MEDS ORDERED: MAGNESIUM OXIDE 400 MG TAB PO SCH (21:30)
--- NOTE | 2016-11-19 23:58 | NUR ---
DUE MEDICATIONS ADMINISTERED, TOLERATED WELL. VITAL SIGNS STABLE. PATIENT RESTING IN BED NO S/S OF DISTRESS OR DISCOMFORT NOTED. CALL LIGHT WITHIN REACH.
[2016-11-20] VITALS: BP 114/63
[2016-11-20] MEDS: HYDROmorphone 1 MG/ML AMP IVP PRN ×3 (01:44→12:18)
--- NOTE | 2016-11-20 01:44 | NUR ---
PT C/O SEVERE PAIN, MEDICATED PER MD ORDER. VITAL SIGNS STABLE, WILL CONTINUE TO MONITOR.
--- NOTE | 2016-11-20 04:26 | NUR ---
PATIENT RESTING AT THIS TIME, NO S/S OF DISTRESS OR DISCOMFORT NOTED. WILL CONTINUE TO MONITOR.
[2016-11-20] MEDS: KETOROLAC 30 MG/ML VIAL IVP SCH ×4 (06:00→23:53)
[2016-11-20 06:08] LABS: BASOPHILS # (AUTO) 0.2 K/uL (0.00-0.22); BASOPHILS % (AUTO) 1.8 % (0.0-2.0); EOSINOPHILS # (AUTO) 0.6 K/uL (0-0.4); EOSINOPHILS % (AUTO) 5.1 % (0.0-4.0); HEMATOCRIT 31.3 % (36-48); HEMOGLOBIN 10.2 g/dL (12.0-16.0); LYMPHOCYTES # (AUTO) 3.7 K/uL (2.5-16.5); LYMPHOCYTES % (AUTO) 31.1 % (20.5-51.1); MEAN CORPUSCULAR HEMOGLOBIN 26 pg (27-31); MEAN CORPUSCULAR HGB CONC 33 g/dL (33-37); MEAN CORPUSCULAR VOLUME 80 fL (80-94); MONOCYTES # (AUTO) 0.8 K/uL (0.8-1.0); MONOCYTES % (AUTO) 6.3 % (1.7-9.3); NEUTROPHILS # (AUTO) 6.6 K/uL (1.8-7.7); NEUTROPHILS % (AUTO) 55.7 % (42.2-75.2); PLATELET COUNT (AUTO) 361 K/uL (140-450); RED BLOOD CELL COUNT(AUTO) 3.91 MIL/uL (4.20-5.40); RED CELL DISTRIBUTION WIDTH 12.5 % (11.6-13.7); WHITE BLOOD COUNT (AUTO) 11.9 K/uL (4.8-10.8)
--- NOTE | 2016-11-20 06:15 | NUR ---
PATIENT IS ASLEEP AT THIS TIME, NO S/S OF DISTRESS OR DISCOMFORT NOTED. CALL LIGHT WITHIN REACH.
[2016-11-20 06:53] LABS: ANION GAP 10.6 (8-16); CALCIUM 8.1 mg/dL (8.5-10.1); CARBON DIOXIDE 28.6 mmol/L (21-32); CREATININE 0.6 mg/dL (0.6-1.3); POTASSIUM 4.2 mmol/L (3.5-5.1)
[2016-11-20 07:01] LABS: MAGNESIUM 1.8 mg/dL (1.8-2.4); PHOSPHORUS 4.3 mg/dL (2.5-4.9)
--- NOTE | 2016-11-20 07:29 | NUR ---
ENDORSED PATIENT TO DAY RN FOR CONTINUITY OF CARE, PATIENT IS IN STABLE CONDITION.
--- NOTE | 2016-11-20 07:30 | NUR ---
RECEIVED REPORT FROM NIGHT NURSE AT PT BEDSIDE. PT RESTING IN BED. DENIES BONNER AT THIS TIME. NO S/S OF RESPIRATORY DISTRESS. ALERT AND ORIENTED X4. CALL LIGHT WITHIN REACH. NO FEVER, DENIES N/V. KIMBERLEE PICC IN PLACE, ONE LUMEN PATENT AND FLOWING, OTHER IS NOT FLUSHING. WILL CONTINUE TO MONITOR.
[2016-11-20 08:00] VITALS: BP 122/69
[2016-11-20] MEDS: cefTRIAXone 2,000 MG in DEXTROSE 5% 100 ML IV SCH ×2 (08:34→20:36)
[2016-11-20] MEDS: OXcarbazepine 150 MG TAB PO SCH ×2 (08:35→20:36)
[2016-11-20] MEDS: LACTOBACILLUS RHAMNOSUS GG 1 EACH CAP PO SCH (08:35)
[2016-11-20] MEDS: levETIRAcetam 500 MG TAB PO SCH ×2 (08:35→20:36)
--- NOTE | 2016-11-20 09:02 | NUR ---
CM NOTE FAXED CONCURRENT REVIEW TO [facility] [phone] PHONE [phone] [facility]Y [id number]
--- NOTE | 2016-11-20 09:42 | NUR ---
PATIENT SEEN BY DR. TALBOT AT PT BEDSIDE. NO NEW ORDERS.
--- NOTE | 2016-11-20 10:59 | NUR ---
GLEN DURON SPOKE WITH NELDA OF [facility] RADIOLOG[facility] DEPT PH# [phone] EXT [phone] AND HE SAID THEY CANNOT ACCOMODATE THE PATIENT BECAUSE THEY ARE DOWN FOR MAINTAINANCE AND REPAIRS TODAY. SPOKE WITH RODGER LI OF [facility] PH# [phone] EXT [phone] AND SHE GAVE WHAT OTHER HOSPITALS THEY ARE CONTRACTED WITH. GLEN PRITCHETT.
[2016-11-20] MEDS ORDERED: ALTEPLASE 2 MG VIAL MC SCH (11:00)
--- NOTE | 2016-11-20 11:28 | NUR ---
11/20/16 RD FOLLOW-UP ASSESSMENT COMPLETED PLEASE REFER TO NUTRITION ASSESSMENT UNDER CARE ACTIVITY FOR ESTIMATED NUTRITIONAL NEEDS. 1. CONTINUE REGULAR DIET + HEALTH SHAKE TID 2. RD TO FOLLOW-UP 3-5 DAYS; MODERATE RISK SHYLA ARTIS RD
--- NOTE | 2016-11-20 13:43 | NUR ---
1215 SPOKE WITH [facility] REGARDING OUTPATIENT MRI. SPOKE WITH VERONICA IN ADMITTING AND SHE STATED THAT THERE MUST BE AN ACCEPTING PHYSICIAN EVEN FOR PATIENTS TO HAVE AN OUTPATIENT PROCEDURE. INFORMED DR MOTTA.
--- NOTE | 2016-11-20 15:00 | NUR ---
PT SLEEPING IN BED. NO S/S OF ACUTE DISTRESS. FATHER AT BEDSIDE.
[2016-11-20 16:00] VITALS: BP 125/68
[2016-11-20] MEDS: PHENYTOIN 100 MG CAPER PO SCH (17:08)
--- NOTE | 2016-11-20 17:12 | NUR ---
1530 SPOKE WITH SCHEDULING IN RADIOLOGY AND INFORMED THAT DR TALBOT WOULD BE ACCEPTING PHYSICIAN. NO OP MRI OPENINGS FOR ANOTHER WEEK. 1600 CALLED [facility] AND SPOKE WITH JUAN IN RADIOLOGY AND SHE STATED THAT THEY COULD DO MRI ON THURSDAY BETWEEN 9 AND 10AM AND PROVIDE LIST OF INFORMATION THAT NEEDS FAXED TO [phone] INCLUDING FACESHEET, AUTH FROM [facility], ORDER FOR MRI AND UPDATED LABS. RADIOLOGY CALL BACK IS [phone] DUPREE OF UPDATE ON MRI.
--- NOTE | 2016-11-20 19:00 | NUR ---
RECEIVED VM FROM ULISES AT [facility] [place] REQUESTING INFORMATION FOLLOW UP FROM PHONE CALL FROM DR MOTTA REQUESTING TRANSFER. 1899 CALLED ULISES AT [phone] AND PROVIDED HER WITH CLINICAL INFORMATION AND SHE REQUESTED THAT FACESHEET, H&P, ALL CONSULTS, IMAGING, LATEST LABS AND MEDICATION, LAST SEVERAL DAYS OF MD PROGRESS NOTES, MICRO AND FAX TO [phone]. CALLED NURSING UNIT AND SPOKE WITH [place] CHARGE NURSE AND PROVIDED HER WITH INFORMATION ON REQUESTED DOCUMENTATION AND PHONE AND FAX NUMBERS FOR [facility] AND REQUESTED THAT DOCUMENTS BE FAXED.
--- NOTE | 2016-11-20 19:25 | NUR ---
ENDORSED PLAN OF CARE TO NIGHT NURSE IN STABLE CONDITION, NO S/S OF ACUTE DISTRESS.
--- NOTE | 2016-11-20 19:28 | NUR ---
RECEIVED FROM AM RN IN BED AWAKE AND ALERT. WITH MALE VISITOR. ABLE TO VERBALIZE NEEDS WELL. NO SOB. PT. WITH PICC LINE TO LEFT UPPER ARM AND AFEBRILE. CARE PLANS FOR THE NIGHT DISCUSSED WITH HER AND RE-ORIENTED TO CALL LIGHT USE. SEIZURE PRECAUTIONS IN PLACE. WITH PADDED SIDE RAILS. ORIENTED X 4. DX. OF EPILEPSY,FEVER AND CHANGE OF LOC.
[2016-11-20] MEDS: NACL 0.9% 1,000 ML IV SCH (20:29)
--- NOTE | 2016-11-20 21:27 | NUR ---
PT. ASKED WHEN HER NEXT PAIN RELIEVER. INFORMED HER IT IS DUE AT 0000 BUT WE HAVE DILAUDID FOR HER IF IT IS SEVERE PAIN. "NO I WILL WAIT" WENT BACK TO SLEEP. NO FURTHER COMPLAINT DONE. CALL LIGHT WITH IN REACH. PICC LINE FLUSHED WITH NS 10 ML EACH PORT. NO RESISTANCE. MD RANDHAWA IN HERE AND WITH NO NEW ORDERS GIVEN.
[2016-11-20 23:57] VITALS: BP 120/68
[2016-11-21] MEDS: KETOROLAC 30 MG/ML VIAL IVP SCH ×2 (05:22→12:32)
--- NOTE | 2016-11-21 05:52 | NUR ---
SLEPT WELL THIS SHIFT. NO SOB. MEDICATED WITH PAIN RELIEVER FOR HEADACHE Q 6H ORDERED. AFEBRILE THIS SHIFT. CALL LIGHT WITH IN REACH.
[2016-11-21 06:05] LABS: BASOPHILS # (AUTO) 0.1 K/uL (0.00-0.22); BASOPHILS % (AUTO) 0.9 % (0.0-2.0); EOSINOPHILS # (AUTO) 0.5 K/uL (0-0.4); EOSINOPHILS % (AUTO) 4.3 % (0.0-4.0); HEMATOCRIT 32.5 % (36-48); HEMOGLOBIN 10.4 g/dL (12.0-16.0); LYMPHOCYTES # (AUTO) 3.2 K/uL (2.5-16.5); LYMPHOCYTES % (AUTO) 27.8 % (20.5-51.1); MEAN CORPUSCULAR HEMOGLOBIN 26 pg (27-31); MEAN CORPUSCULAR HGB CONC 32 g/dL (33-37); MEAN CORPUSCULAR VOLUME 80 fL (80-94); MONOCYTES # (AUTO) 0.6 K/uL (0.8-1.0); MONOCYTES % (AUTO) 5.6 % (1.7-9.3); NEUTROPHILS # (AUTO) 7.2 K/uL (1.8-7.7); NEUTROPHILS % (AUTO) 61.4 % (42.2-75.2); PLATELET COUNT (AUTO) 404 K/uL (140-450); RED BLOOD CELL COUNT(AUTO) 4.06 MIL/uL (4.20-5.40); RED CELL DISTRIBUTION WIDTH 12.4 % (11.6-13.7); WHITE BLOOD COUNT (AUTO) 11.6 K/uL (4.8-10.8)
[2016-11-21 06:25] LABS: MAGNESIUM 1.7 mg/dL (1.8-2.4); PHOSPHORUS 4.1 mg/dL (2.5-4.9)
[2016-11-21 06:31] LABS: ANION GAP 9.8 (8-16); CALCIUM 8.3 mg/dL (8.5-10.1); CREATININE 0.5 mg/dL (0.6-1.3); POTASSIUM 3.8 mmol/L (3.5-5.1)
--- NOTE | 2016-11-21 07:30 | NUR ---
RECEIVED REPORT FROM NITA MCLAIN. PT IS RESTING IN BED, A/OX4, AMBULATORY, SKIN IS INTACT, PT HAS PICC LINE LEFT UPPER ARM, DOUBLE LUMEN, PATENT, INTACT, FLUSHING WELL, NO S/S OF RESPIRATORY DISTRESS OR DISCOMFORT NOTED, SAFETY/FALL/SEIZURE PRECAUTIONS ARE IN PLACE, DISCUSSED PLAN OF CARE WITH PT, PT VERBALIZED UNDERSTANDING, CALL LIGHT IS WITHIN REACH, WILL CONTINUE TO MONITOR.
--- NOTE | 2016-11-21 07:38 | NUR ---
GLEN DURON SPOKE WITH ULISES OF [facility] [place] [place] AT [phone] AND SHE CONFIRMED THAT THEY HAVE RECEIVED THE FAX ON PATIENT'S CLINICAL INFORMATION AND SHE SAID SHE HAD LEFT A VOICEMAIL TO [facility] LI WHO HAS NOT YET RETURNED HER CALL. LEFT A MESSAGE FOR [facility] LI [phone] EXT [phone] TO FOLLOW UP ON THE AUTHORIZATION. FAXED REQUESTED PATIENT INFORMATION TO [facility] [phone] AND LEFT A MESSAGE TO JUAN THAT I'M STILL WAITING FOR [facility] CARROLL FOR THE AUTHORIZATION.
[2016-11-21 08:00] VITALS: BP 116/64
[2016-11-21] MEDS: HYDROmorphone 1 MG/ML AMP IVP PRN ×2 (08:24→15:04)
[2016-11-21] MEDS: OXcarbazepine 150 MG TAB PO SCH (08:25)
[2016-11-21] MEDS: LACTOBACILLUS RHAMNOSUS GG 1 EACH CAP PO SCH (08:25)
[2016-11-21] MEDS: levETIRAcetam 500 MG TAB PO SCH (08:26)
[2016-11-21] MEDS: cefTRIAXone 2,000 MG in DEXTROSE 5% 100 ML IV SCH (08:26)
--- NOTE | 2016-11-21 08:26 | NUR ---
DUE MEDICATIONS GIVEN, PT TOLERATED WELL, CALL LIGHT WITHIN REACH, WILL CONTINUE TO MONITOR.
--- NOTE | 2016-11-21 09:15 | NUR ---
CM NOTE RECEIVED CALL FROM RODGER FOR CM OMID LI OF [place] [phone] EXT [phone] AND SHE SAID THAT THEY HAVE RECEIVED THE VOICEMAIL THAT I HAVE LEFT AND VOICEMAIL THAT KAYLENE OF [facility] HAS LEFT AND THAT THEY ARE STILL WORKING ON IT
--- NOTE | 2016-11-21 10:03 | NUR ---
CM NOTE RECEIVED CALL FROM CHARIS[facility] [phone] EXT [phone] AND SHE SAID THAT THEY ARE NOT AUTHORIZING TRANSFER TO [facility] [place] BECAUSE IT IS NOT ONE OF THEIR CONTRACTED FACILITIES. DR. ÁNGELA PRITCHETT.
--- NOTE | 2016-11-21 10:30 | NUR ---
PT SLEEPING IN BED, DAD IS AT BEDSIDE, CALL LIGHT IS WITHIN REACH.
--- NOTE | 2016-11-21 11:06 | NUR ---
CM NOTE FAXED CONCURRENT REVIEW TO [facility] [phone] PHONE [phone] [facility]Y [id number]
--- NOTE | 2016-11-21 12:30 | NUR ---
PT RESTING IN BED, NO S/S OF RESPIRATORY DISTRESS OR DISCOMFORT NOTED, CALL LIGHT IS WITHIN REACH, WILL CONTINUE TO MONITOR.
[2016-11-21] MEDS ORDERED: FIO PO (12:55)
[2016-11-21] MEDS ORDERED: KETO10TA2 PO (12:55)
--- NOTE | 2016-11-21 14:41 | NUR ---
CM NOTE ORDER FOR MRI TO [facility] AND TRANSFER TO [facility] CANCELLED. PER DR. MOTTA, PATIENT IS STABLE FOR DISCHARGE. CALLED [facility] AND [facility] TO INFORM THEM. Addendum: 11/21/16 at 1553 by Fatuma Fernandez CM SPOKE WITH RODGER OF [facility], AND LEFT A VOICEMAIL FOR RADIOLOGY DEPT [facility] HOSP
--- NOTE | 2016-11-21 14:45 | NUR ---
PT IS RESTING IN BED, WATCHING TV, PATIENT'S DAD IS AT BEDSIDE, CALL LIGHT WITHIN REACH.
--- NOTE | 2016-11-21 16:00 | NUR ---
PER. DR. DUPREE DISCONTINUE PICC LINE, I ASKED HIM IF HE COULD PLEASE PUT IN AN ORDER TO DC PICC LINE.
--- NOTE | 2016-11-21 16:15 | NUR ---
PICC LINE DISCONTINUED, LINE INTACT, PT TOLERATED WELL, DISCHARGE INSTRUCTIONS GIVEN, PT DISCHARGED IN STABLE CONDITION ACCOMPANIED BY HER PARENTS.
== END 2016-11-21 16:15 | disposition home or self-care (01) | DRG 720 ==
LOC: MED 14:50 → MIC 21:53 → MTU 11-16 18:42
PROVIDERS: ADMIT Family Medicine; ATTEND Family Medicine
PROC: 009U3ZZ Drainage of Spinal Canal, Percutaneous Approach (ICD-10-PCS; 2016-11-13)
PROC: 009U3ZZ Drainage of Spinal Canal, Percutaneous Approach (ICD-10-PCS; principal; 2016-11-14)
PROC: BR19ZZZ Fluoroscopy of Lumbar Spine (ICD-10-PCS; 2016-11-14)
PROC: 02HV33Z Insertion of Infusion Device into Superior Vena Cava, Percutaneous Approach (ICD-10-PCS; 2016-11-15)
PROC: B548ZZA Ultrasonography of Superior Vena Cava, Guidance (ICD-10-PCS; 2016-11-15)
DX: A41.3 Sepsis due to Hemophilus influenzae (principal); E43 Unspecified severe protein-calorie malnutrition; G00.0 Hemophilus meningitis; E72.20 Disorder of urea cycle metabolism, unspecified; K72.90 Hepatic failure, unspecified without coma; E78.5 Hyperlipidemia, unspecified; E87.1 Hypo-osmolality and hyponatremia; E66.9 Obesity, unspecified; G40.909 Epilepsy, unspecified, not intractable, without status epilepticus; E87.6 Hypokalemia; E83.42 Hypomagnesemia; Z68.41 Body mass index [BMI] 40.0-44.9, adult; Z79.899 Other long term (current) drug therapy; Z71.3 Dietary counseling and surveillance
CPT/HCPCS: 36415; 36600; 70450; 71010; 76830; 77003; 80048; 80053; 80185; 80202; 80305; 81001; 81003; 82140; 82803; 82948; 83036; 83605; 83735; 84100; 84157; 84436; 84439; 84443; 84479; 84702; 85025; 85610; 87040; 87070; 87081; 87086; 87102; 87205; 87899; 93005; 96361; 96365; 96368; 96375; 97110; 97116; 97530; 99291; C1751; G0482; J0133; J0696; J1100; J1165; J1170; J1200; J1885; J1940; J2060; J2270; J2405; J2765; J2997; J3370; J3475; J3490; J7030; J7060; Q0092